=== PATIENT | male | born 1985 | race African-American/Black ===

== ENCOUNTER 2020-06-03 03:49 | Emergency (ER) | payer SELFPAY ==
[2020-06-03 03:55] VITALS: BP 152/66
== END 2020-06-03 04:21 | disposition home or self-care (01) ==
LOC: ER 03:49
DX: Z59.0 Homelessness (principal); T69.8XXA Other specified effects of reduced temperature, initial encounter; X31.XXXA Exposure to excessive natural cold, initial encounter; R03.0 Elevated blood-pressure reading, without diagnosis of hypertension
CPT/HCPCS: 99281

== ENCOUNTER 2023-07-25 00:30 | Emergency (ER) | payer MEDICAID ==
[~2023-07-25] VITALS: Ht 167.6 cm; Wt 76.0 kg
[2023-07-25 00:50] VITALS: BP 126/90; TEMP 97.9; O2SAT 98
[2023-07-25 00:56] VITALS: PULSE 89; RESP 18
[2023-07-25] MEDS: BACITRACIN ZINC OINT UDPKT TOP ONE (01:30)
[2023-07-25] MEDS: LIDOCAINE HCL/EPINEPHRINE 1%-EPI 1:100,000 20 ML VIAL INFIL ONE (01:30)
[2023-07-25] MEDS ORDERED: LIDOCAINE HCL/PF 1% 10 MG/ML 5ML VIAL INFIL ONE (01:45)
[2023-07-25] MEDS ORDERED: BACITRACIN ZINC OINT UDPKT TOP ONE (01:45)
== END 2023-07-25 03:54 | disposition home or self-care (01) ==
LOC: ER 00:32
DX: S09.90XA Unspecified injury of head, initial encounter (principal); W18.39XA Other fall on same level, initial encounter; Y93.89 Activity, other specified; Y92.89 Other specified places as the place of occurrence of the external cause; Y99.8 Other external cause status
CPT/HCPCS: 99284; 70450; J3490

== ENCOUNTER 2023-08-31 09:27 | Emergency (ER) | payer MEDICAID ==
[~2023-08-31] VITALS: Ht 162.6 cm; Wt 84.5 kg
[2023-08-31 09:42] VITALS: O2SAT 100
[2023-08-31 10:22] VITALS: BP 140/93; PULSE 87; RESP 19; TEMP 98.2
== END 2023-08-31 10:29 | disposition home or self-care (01) ==
LOC: ER 09:27
DX: S01.01XD Laceration without foreign body of scalp, subsequent encounter (principal); Z48.02 Encounter for removal of sutures; X58.XXXD Exposure to other specified factors, subsequent encounter
CPT/HCPCS: 99282

== ENCOUNTER 2023-11-23 11:11 | Emergency (ER) | payer MEDICAID ==
[~2023-11-23] VITALS: Ht 167.6 cm; Wt 88.0 kg
[2023-11-23 12:07] VITALS: O2SAT 99
[2023-11-23] MEDS ORDERED: SULF1TAB48 MT (13:44)
[2023-11-23 14:22] VITALS: BP 128/78; PULSE 83; RESP 16; TEMP 98.2
== END 2023-11-23 14:24 | disposition home or self-care (01) ==
LOC: ER 11:11
DX: S30.861A Insect bite (nonvenomous) of abdominal wall, initial encounter (principal); L03.311 Cellulitis of abdominal wall; W57.XXXA Bitten or stung by nonvenomous insect and other nonvenomous arthropods, initial encounter; Y93.9 Activity, unspecified; Y92.89 Other specified places as the place of occurrence of the external cause; Y99.8 Other external cause status
CPT/HCPCS: 99283